=== PATIENT | male | born 2005 | race Two or more races ===

== ENCOUNTER 2025-01-14 04:56 | Emergency (ER) | payer MEDICAID, SELFPAY ==
[2025-01-14 04:57] VITALS: BMI 26.6
[2025-01-14 05:05] VITALS: BP 122/50; PULSE 106; RESP 18; TEMP 37.1; O2SAT 97
--- NOTE | 2025-01-14 05:16 | XR_ITS ---
Examination: Abdomen AP single view Technique: AP portable supine abdomen, single view Exam date and time: January 14, 2025, 0532 hours INDICATIONS: Abdominal pain and constipation beginning today. FINDINGS: Mild to moderate stool throughout the colon No obstruction No free air IMPRESSION: Normal bowel gas pattern
--- NOTE | 2025-01-14 05:16 | PD.EDRME ---
Rapid Medical Screening Exam RME Arrival date/time: 01/14/25 04:56 This is a case of 20-year-old male with no medical history came in in the emergency room due to generalized body ache headache and abdominal pain with constspatiion Chief Complaint: General Adult/Misc Complain Time Seen by Provider: 01/14/25 05:16 Vital signs: Vital Signs Temperature 98.7 F 01/14/25 05:05 Pulse Rate 106 H 01/14/25 05:05 Respiratory Rate 18 01/14/25 05:05 Blood Pressure 122/50 L 01/14/25 05:05 Pulse Oximetry (%) 97 01/14/25 05:05 Oxygen Delivery Method Room Air 01/14/25 05:05 Exam: Abdominal exam benign/nonsurgical no guarding no rebound no rigidity Clinical Impression: Abdominal pain
[2025-01-14 06:37] LABS: Collection Type, Urine Clean Catch
--- NOTE | 2025-01-14 06:48 | PD.EDADULT ---
ED General RME/HPI General Chief complaint: General Adult/Misc Complain Stated complaint: HEADACHE, BODYACHES, FEELS CONSTIPATED Time Seen by Provider: 01/14/25 05:16 Arrival date/time: 01/14/25 04:56 RME / HPI RME / HPI narrative: 01/14/25 04:56 This is a case of 20-year-old male with no medical history came in in the emergency room due to generalized body ache headache and abdominal pain with constspatiion 20-year-old male without significant past medical history presents with a 2-day history of mild headache with bodyaches and constipation. He denies fevers. He denies abdominal pain. No vomiting. He has had a mild cough. Exam: Abdominal exam benign/nonsurgical no guarding no rebound no rigidity Impression: Abdominal pain Related Data Home Medications ?Medication ?Instructions ?Recorded ?Confirmed albuterol sulfate 0.63 mg/3 mL 0.15 mg/kg inhalation QID Asthma 10/10/17 07/09/18 solution for nebulization fluticasone furoate 100 1 inh inhalation QDAY 07/09/18 07/09/18 mcg/actuation blister powder for inhalation Previous Rx's ?Medication ?Instructions ?Recorded prednisone 20 mg tablet 20 mg PO QDAY #4 tabs 07/09/18 Allergies Allergy/AdvReac Type Severity Reaction Status Date / Time amoxicillin Allergy Mild Hives Verified 06/24/21 17:45 Review of Systems Review of Systems Systems Reviewed: All systems reviewed, normal except as documented ED Exam Narrative Physical exam: Generally patient is alert nontoxic in appearance and in no obvious distress, heart regular rate and rhythm, lungs clear to auscultation equal bilaterally, abdomen is soft nondistended nontender no McBurney's point tenderness. Neck shows no nuchal rigidity, oropharynx is moist and clear, skin is warm pale and dry Course Quality Measures none Orders Category Date Time Status KUB [XR abdomen 1V] Stat Exams 01/14/25 05:16 Taken CBC Stat Lab 01/14/25 06:37 Received Comprehensive Metabolic Panel Stat Lab 01/14/25 06:37 Received Lipase Stat Lab 01/14/25 06:37 Received Urinalysis Stat Lab 01/14/25 05:46 Received Vital Signs Vital signs: Vital Signs Temperature 98.7 F 01/14/25 05:05 Pulse Rate 106 H 01/14/25 05:05 Respiratory Rate 18 01/14/25 05:05 Blood Pressure 122/50 L 01/14/25 05:05 Pulse Oximetry (%) 97 01/14/25 05:05 Oxygen Delivery Method Room Air 01/14/25 05:05 Discharge Plan Plan Patient Disposition: HOME (Self Care) Prescriptions/Referrals Prescriptions/Med Rec: No Action albuterol sulfate 0.63 mg/3 mL Solution For Nebulization 0.15 mg/kg INHALATION QID fluticasone furoate 100 mcg/actuation Blister With Device 1 inh INHALATION QDAY prednisone 20 mg tablet 20 mg PO QDAY Qty: 4 0RF Referrals: No Primary/Family,Physician [Primary Care Provider] - In 1 week Problem List Clinical Impression: Acute viral syndrome Patient/Caregiver Discharge Instructions Education Materials: ED Viral Syndrome (Adult) Additional Instructions: Return if abdominal pain begins. You may take Tylenol and ibuprofen for your body aches. Print Language: [employer] Stand Alone Forms: Johanny Award Info., Patient Portal Info Letter MDM Narrative MDM hospital course (for use when minimal MDM required): Patient has a slight leukocytosis of 15,000. KUB ordered prior to my evaluation was unremarkable. I do not believe this patient had meningitis. I doubt appendicitis. Patient was given 60 mg of Toradol IM. He is to take Tylenol and ibuprofen for body aches. Follow-up with his doctor. Return to ER as needed or if condition worsens.
[2025-01-14 06:59] VITALS: BP 133/79; PULSE 88; RESP 18; TEMP 36.8; O2SAT 98
[2025-01-14 07:03] LABS: Basophils # (Auto) 0.1 Thou/mm3 (0.0-0.2); Basophils % (Auto) 0 % (0-2.5); Eosinophils # (Auto) 0.0 Thou/mm3 (0.0-0.5); Eosinophils % (Auto) 0 % (0-10); Hematocrit 44.1 % (41.0-53.0); Hemoglobin 14.8 g/dL (13.5-16.0); Immature Granulocytes Auto 0.07 Thou/mm3 (0.00-0.00); Lymphocytes # (Auto) 1.1 Thou/mm3 (1.0-4.8); Lymphocytes % (Auto) 6 % (10-50); Mean Corpuscular HGB Conc 33.6 g/dl (31.0-37.0); Mean Corpuscular Hemoglobin 28.5 pg (25.0-35.0); Mean Corpuscular Volume 85 fL (80-100); Monocytes # (Auto) 1.9 Thou/mm3 (0.0-0.8); Monocytes % (Auto) 11 % (0-12); Neutrophils # (Auto) 14.6 Thou/mm3 (1.8-7.7); Neutrophils % (Auto) 83 % (37-80); Nucleated Red Blood Cell # 0.00 Thou/mm3 (0.00-0.00); Nucleated Red Blood Cell % 0 /100 WBC (0); Platelet Count 282 Thou/mm3 (140-440); RDW Standard Deviation 38.8 fL (35.1-43.9); Red Blood Count 5.19 Miln/mm3 (4.50-5.90); White Blood Count 17.7 Thou/mm3 (4.5-11.0)
[2025-01-14 07:18] LABS: Alanine Aminotransferase 25 U/L (10-49); Albumin, Serum 4.9 gm/dL (3.5-5.0); Albumin/Globulin Ratio 1.5 (1.2-2.2); Alkaline Phosphatase 103 U/L (46-116); Anion Gap 12 (7-16); Aspartate Amino Transferase 27 U/L (0-34); BUN/Creatinine Ratio 8 Ratio (12-20); Bilirubin,Total 0.5 mg/dL (0.3-1.2); Blood Urea Nitrogen 8 mg/dL (9-23); Calcium 9.4 mg/dL (8.3-10.6); Calcium (Corrected) 9.4 mg/dL (8.5-10.1); Carbon Dioxide 22.4 mMol/L (20.0-31.0); Chloride 104 mMol/L (98-107); Creatinine (Component) 1.0 mg/dL (0.6-1.3); Estimated Creatinine Clearance 110.2 mL/min (>60); Globulin 3.3 gm/dL (2.3-3.5); Glucose 121 mg/dL (74-106); Lipase 28 U/L (12-53); Osmolality,Calculated 274 (275-295); Potassium 3.7 mMol/L (3.4-5.1); Sodium 138 mMol/L (136-145); Total Protein 8.2 gm/dL (5.7-8.2); eGFR > 60 See Note
[2025-01-14] MEDS: KETOROLAC INJ 60 MG/2 ML VIAL IM (07:21)
[2025-01-14 07:37] LABS: Bacteria,Urine Rare; Bilirubin,Urine Negative (Negative); Blood,Urine Negative (Negative); Clarity,Urine Clear (Clear/Hazy); Color,Urine Yellow (Lt Yel-Yel); Glucose, Urine Negative (Negative); Ketones,Urine 1+ (Negative); Leukocyte Esterase,Urine Negative (Negative); Nitrite,Urine Negative (Negative); PH,Urine 6.0 (5.0-7.0); Protein,Urine 1+ (Neg - Trace); RBC,Urine 1 /hpf (0-3); Specific Gravity,Urine 1.035 (1.001-1.035); Squamous Epithelial Cell,Urine < 1 /hpf (0-5); Transitional Epi Cells,Urine < 1 /hpf (0-5); Urobilinogen,Urine Negative mg/dL (0.0-1.0); WBC,Urine 5 /hpf (0-5)
== END 2025-01-14 07:28 | disposition home or self-care (01) ==
PROVIDERS: Nurse Practitioner Family; Emergency Provider Emergency Medicine
DX: B34.9 Viral infection, unspecified (principal)
CPT/HCPCS: 36415; 74018; 80053; 81001; 83690; 85025; 96372; 99283; J1885